=== PATIENT | male | born 1990 | race Caucasian/White ===

== ENCOUNTER 2021-03-20 16:49 | Emergency (ER) | payer OTHER, SELFPAY ==
[2021-03-20 17:05] VITALS: BP 162/77; PULSE 70; RESP 16; TEMP 37.2; O2SAT 99; BMI 24.3
--- NOTE | 2021-03-20 20:08 | ED.GENADULT ---
HPI - General Adult General Chief complaint: Dental/Oral Stated complaint: dental pain Time Seen by Provider: 03/20/21 20:08 Related Data Previous Rx's Medication Instructions Recorded amoxicillin-pot clavulanate 1 tab PO BID 10 Days #20 tab 03/20/21 [Augmentin] ibuprofen 600 mg PO Q8H PRN #20 tab 03/20/21 oxycodone 7 mg PO Q4-6H PRN #5 tab 03/20/21 amoxicillin 500 mg PO BID 7 Days #14 cap 03/21/21 Allergies Allergy/AdvReac Type Severity Reaction Status Date / Time No Known Allergies Allergy Unverified 06/18/20 18:47 Review of Systems Review of Systems: Constitutional : No Weight loss, No Fever, No Chills, No Night Sweats, No Fatigue, No Malaise ENT/Mouth : No Hearing loss, No Ear Pain, No Nasal Congestion, No Sinus Pain, No Hoarseness, No sore throat, No Rhinorrhea, No Swallowing Difficulty, dental caries Eyes: No Eye Pain, No Swelling, No Redness, No Foreign Body, No Discharge, No Vision Changes Cardiovascular : No Chest Pain, No SOB, No Dyspnea on Exertion, No Orthopnea, No Edema, No Palpitations Respiratory : No Cough, No Sputum, No Wheezing, No Smoke Exposure, No Dyspnea Gastrointestinal : No Nausea, No Vomiting, No Diarrhea, No Constipation, No abdominal Pain, No Hematochezia, No Melena Genitourinary : no irregular bleeding, No Dysuria, No Urinary Frequency, No Hematuria, No Urinary Incontinence, No Urgency, No Flank Pain, No Urinary Flow Changes, No Hesitancy Musculoskeletal : No joint pain, No Myalgias, No Joint Swelling Skin : No Skin Lesions, No rash Neuro : No Weakness, No Numbness, No Paresthesias, No Loss of Consciousness, No Dizziness, No Headache Psych : No Anxiety/Panic, No Depression, No SI/HI/AH/VH, No Social Issues, Heme/Lymph: No Bruising, No Bleeding,No Lymphadenopathy Endocrine : No Polyuria, No Polydipsia, No Temperature Intolerance Yes all other systems are reviewed and are negative [facility] Social History Social History Advance Directives: No Advance Directives Information Provided: No Physical Exam Vital Signs: Vital Signs: Last Vital Signs Temp 98.9 F 03/20/21 17:05 Pulse 70 03/20/21 17:05 Resp 16 06/19/21 17:05 BP 162/77 H 03/20/21 17:05 Pulse Ox 99 03/20/21 17:05 Body Mass Index 24.3 Const: General: healthy appearing, no acute distress and well developed Nutritional Appearance: well nourished Orientation/consciousness: patient oriented x3 HENMT: Head: Yes normal to inspection and Yes normocephalic Ears: hearing grossly normal bilaterally and TM's normal bilaterally General nose exam: Normal external nose present and Normal nares present Face and sinus: Yes normal facial exam and Yes sinuses nontender Teeth and gingiva: abnormal tooth and associated gingiva (Negative for abscess) Throat: Yes tonsils normal and Yes uvula midline Neck: Neck: Yes normal visual inspection, Yes full ROM and Yes trachea midline Thyroid: Thyroid normal Resp: Auscultation: clear to auscultation bilaterally Cardio: Rate: regular rate Rhythm: regular rhythm GI: Inspection: Yes normal to inspection and No distended Palpation (GI): No hepatosplenomegaly present Auscultation: normal bowel sounds Skin: General skin exam: elasticity normal, turgor normal and dry skin Neuro: General: patient oriented x3 Course Course Course Narrative: 30-year-old male here today for complaining of mouth pain. Patient has had very poor dentition and multiple dental caries. Patient has an appointment with oral surgeon this Monday. Has been taking ibuprofen and Tylenol without any relief. There is no abscess. I will order him antibiotic and morphine for pain last time he had ibuprofen was 1 hour ago and Tylenol 3 hours ago. Patient denies any other symptoms. Discharge Plan Discharge Clinical Impression: Dental caries, Toothache Patient Disposition: Home, Self-Care Instructions: Toothache (ED) Additional Instructions: You were seen here today for complaining of gum and teeth pain. Please follow-up with your dentist on Monday. You will be given antibiotic and pain medication. Do not drive or operate any heavy machinery while taking the pain medication. You may return to emergency department if you experience any additional considering symptoms. Prescriptions: New oxycodone 5 mg tablet 7 mg PO Q4-6H PRN (Reason: pain) Qty: 5 RF: 0 amoxicillin-pot clavulanate [Augmentin] 875-125 mg tablet 1 tab PO BID 10 Days Qty: 20 RF: 0 ibuprofen 600 mg tablet 600 mg PO Q8H PRN (Reason: pain) Qty: 20 RF: 0 amoxicillin 500 mg capsule 500 mg PO BID 7 Days Qty: 14 RF: 0 Interventions: ED Discharge Assessment Last Done: 03/20/21 22:04 Discharge Date/Time: 03/20/21 22:04
[2021-03-20] MEDS: Morphine Sulfate 4 MG/ML CARTRIDGE IM (20:40)
[2021-03-20] MEDS: Amoxicillin/Potassium Clav 875 MG TABLET PO (20:40)
== END 2021-03-20 22:04 | disposition home or self-care (01) ==
PROVIDERS: Emergency Provider Internal Medicine; PCP Internal Medicine
DX: K02.9 Dental caries, unspecified (principal)
CPT/HCPCS: 96372; 99284; J2270

== ENCOUNTER 2021-06-03 13:07 | Inpatient (IN) | payer OTHER, SELFPAY ==
[2021-06-03 16:09] VITALS: BP 132/75; PULSE 92; RESP 16; TEMP 37.2; O2SAT 99
[2021-06-03 16:11] VITALS: BMI 25.1
[2021-06-03] MEDS: Nicotine Polacrilex 2 MG GUM 4 MG BUCCAL (16:22)
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
[2021-06-03 21:29] VITALS: PULSE 71; RESP 71; TEMP 37.1; O2SAT 95
[2021-06-04] MEDS: Nicotine Polacrilex 2 MG GUM 4 MG BUCCAL ×3 (07:55→20:15)
[2021-06-04] MEDS: FLUoxetine HCl Oral Solution 20 MG/5 ML SOLUTION PO (08:01)
[2021-06-04 08:52] VITALS: BP 128/69; PULSE 71; TEMP 36.9; O2SAT 96
--- NOTE | 2021-06-04 11:21 | HO.PM.IMCN ---
History of Present Illness Data of Consult Service Date: 06/04/21 Primary Care Provider: Unknown Physician HPI 30-year-old male with anxiety and depression who was evaluated at [facility] on Jun 01 with suicidal ideation, at some point reported taking Xanax but later recanted this. He is now admitted here at [facility] for treatment of depression/suicidality after break-up with his girlfriend. He admits to me that he did take xanax not get high but hide how he was feeling . He feels better, he has no medical issues other than chronic dental issues due to poor dentition ? Review of Systems Review of Systems: Gen: no fever Resp: no sob, no cough CV: no chest, no CURRY, no leg edema GI: No n/v, no abd pain Neuro: No confusion Psych: denies SI/HI [facility] Medical History Cocaine use disorder, mild, in early remission Generalized anxiety disorder MDD (major depressive disorder), recurrent episode, moderate Social History Household Members: None Housing: Homeless Do you presently have visiting nurse or other home services: No Patient Tobacco Use Status: Current everyday Tobacco user Tobacco use type: Cigarette Cigarette Packs Per Day: 1 Cigarettes Per Day: 20.0 Years Smoked: 17 Smoked in Last 30 Days: Yes e-Cigarette/Vaping Use: Never Used Patient Interested in Nicotine Replacement: Yes Second Hand Smoke Exposure: No Use of substances other than those prescribed or required for medical reasons: Yes Substance Use Type: Crack/Cocaine, Former Substance User, Marijuana and Caffiene Substance Use Frequency: Chronic Longstanding Last Used Substance: Days (ago) Last Used Substance Other:: Xanax overdose 06/01 Currently Displaying Signs/Symptoms of Drug Intoxication Withdrawal: No Other Past Substance Use Problem:: Long standing use of Cocaine -- I was sober since January 2019 before this Any prior treatment program specific to substance use: Yes (Has been [facility]) Have you been hit, kicked, punched, or otherwise hurt by someone within the past year? If so, by whom?: No Do you feel safe in your current relationship?: No Current Relationship Is there a partner from a previous relationship who is making you feel unsafe now?: No Are you made to feel afraid or neglected: No Advance Directives: No Advance Directives Information Provided: No Advance Directives on File: No Do you have thoughts of harming others: None Do you have a plan to hurt others: No Plan Recently lost weight without trying: No Eating poorly because of decreased appetite: No Nutrition Risks: No Nutritional Risk Poor oral hygiene: Yes ( My teeth are bad and I think I have infections in my teeth. ) Meds Allergies Allergy/AdvReac Type Severity Reaction Status Date / Time No Known Allergies Allergy Unverified 06/18/20 18:47 Active Medications: Current Medications Generic Name Dose Route Start Last Admin Trade Name Freq PRN Reason Stop Dose Admin Acetaminophen 650 mg 06/03/21 13:29 Acetaminophen 325 Mg Tablet PO Q6H PRN Headache/Pain Mild Scale (1-3) Al Hydroxide/Mg Hydroxide 30 ml 06/03/21 13:29 Magnesium Hydrox/Alum Hydrox 30 Ml Oral.Susp PO Q6H PRN Heartburn/Nausea Fluoxetine HCl 20 mg 06/04/21 09:00 06/04/21 08:01 Fluoxetine Hcl Oral Solution 20 Mg/5 Ml Solution PO 20 mg DAILY JAMES Administration Hydroxyzine HCl 25 mg 06/03/21 13:29 Hydroxyzine Hcl 25 Mg Tablet PO BEDTIME PRN Anxiety Magnesium Hydroxide 30 ml 06/03/21 13:29 Milk Of Magnesia 30 Ml Oral.Susp PO DAILY PRN Constipation Nicotine Polacrilex 4 mg 06/03/21 13:29 06/04/21 07:55 Nicotine Polacrilex 2 Mg Gum BUCCAL 4 mg Q2H PRN Administration Nicotine Cravings Trazodone HCl 50 mg 06/03/21 13:29 Trazodone Hcl 50 Mg Tablet PO BEDTIME PRN Insomnia Physical Exam Vital Signs and Narrative: Vital Signs: Last Vital Signs Temp 98.4 F 06/04/21 08:52 Pulse 71 06/04/21 08:52 Resp 71 H 06/03/21 21:29 BP 128/69 06/04/21 08:52 Pulse Ox 96 06/04/21 08:52 Body Mass Index 25.1 General: AO X 3, no acute distress HEENT--very poor dentiotion, no obvious visible abscess Resp: CTA bilateral CVS: S1,S2,RRR GI: +BS, NT, no distention Skin: No rash Neuro: motor grossly intact, CN2 to 12 intact Psych: appropriate affect , denies SI Assessment and Plan (1) Generalized anxiety disorder: Status: Acute (2) Cocaine use disorder, mild, in early remission: Status: Acute 30/m with depression with suicidality, substance use desorder presently been managed for depression, his mood is better. Plan: Continue presently pharmacoligical and behavioral and social support, encouraged him to stop substance use and to seek dental care for dental issues. Thanks
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
[2021-06-04 18:00] VITALS: BP 128/66; PULSE 78; RESP 18; TEMP 36.2; O2SAT 97
[2021-06-05 06:00] VITALS: BP 126/59; PULSE 63; RESP 20; TEMP 36.7; O2SAT 98
[2021-06-05] MEDS: FLUoxetine HCl Oral Solution 20 MG/5 ML SOLUTION PO (09:10)
[2021-06-05] MEDS: Nicotine Polacrilex 2 MG GUM 4 MG BUCCAL ×4 (09:46→20:29)
--- NOTE | 2021-06-05 13:43 | HO.PSYCHPN ---
Subjective Subjective Date of Service: 06/06/21 Reason For Visit: depressive disorder Interim History: Pt reports decreased symptoms of depression. He denies SI/HI. He reports some difficulty sleeping- wants to try melatonin for it. He has been visible in the unit. He attends assigned groups. No behavioral concerns. Medication Compliance: Yes Side effects from medications: No Review of Systems Review of Systems Gen: no fever Resp: no sob, no cough CV: no chest, no CURRY, no leg edema GI: No n/v, no abd pain Neuro: No confusion Psych: denies SI/HI Mental Status Exam Mental Status Exam Narrative: Appearance: casually groomed, fair hygiene in NAD Behavior:cooperative psychomotor: no agitation or retardation noted Speech:clear, normal rate/rhythm, volume, spontaneous Thought process:linear Thought content:no signs of psychosis, future oriented Mood: better Affect: congruent, brighter, non labile SI:none HI: none VH/AH: none Delusions:none Insight/judgment:fair x 2. Memory/cog: alert, oriented x 3. grossly intact to conversational testing. Diagnostics Vital Signs (24Hr): Vital Signs - 24 hr 06/05/21 20:03 06/06/21 06:00 Temperature 98.0 F 98.2 F Pulse Rate 76 58 Respiratory Rate 18 Blood Pressure 146/74 H 132/71 Pulse Oximetry 97 97 Body Mass Index 25.1 Medications Medications Current Medications Generic Name Dose Route Start Last Admin Trade Name Freq PRN Reason Stop Dose Admin Acetaminophen 650 mg 06/03/21 13:29 Acetaminophen 325 Mg Tablet PO Q6H PRN Headache/Pain Mild Scale (1-3) Al Hydroxide/Mg Hydroxide 30 ml 06/03/21 13:29 Magnesium Hydrox/Alum Hydrox 30 Ml Oral.Susp PO Q6H PRN Heartburn/Nausea Fluoxetine HCl 20 mg 06/06/21 09:00 06/06/21 08:22 Fluoxetine Hcl 20 Mg Capsule PO 20 mg DAILY JAMES Administration Hydroxyzine HCl 25 mg 06/03/21 13:29 Hydroxyzine Hcl 25 Mg Tablet PO BEDTIME PRN Anxiety Magnesium Hydroxide 30 ml 06/03/21 13:29 Milk Of Magnesia 30 Ml Oral.Susp PO DAILY PRN Constipation Melatonin 6 mg 06/05/21 21:00 06/05/21 20:29 Melatonin 3 Mg Tablet PO 6 mg BEDTIME JAMES Administration Nicotine Polacrilex 4 mg 06/03/21 13:29 06/06/21 09:56 Nicotine Polacrilex 2 Mg Gum BUCCAL 4 mg Q2H PRN Administration Nicotine Cravings Trazodone HCl 50 mg 06/03/21 13:29 Trazodone Hcl 50 Mg Tablet PO BEDTIME PRN Insomnia Allergies Allergies Allergy/AdvReac Type Severity Reaction Status Date / Time No Known Allergies Allergy Unverified 06/18/20 18:47 Assessment & Plan Assessment & Plan (1) Generalized anxiety disorder: Status: Acute Code(s): F41.1 - Generalized anxiety disorder (2) Cocaine use disorder, mild, in early remission: Status: Acute Code(s): F14.11 - Cocaine abuse, in remission (3) MDD (major depressive disorder), recurrent episode, moderate: Status: Acute Code(s): F33.1 - Major depressive disorder, recurrent, moderate Assessment and Plan: 30/m with depression with suicidality, substance use desorder presently been managed for depression, his mood is better. Plan: Continue presently pharmacoligical and behavioral and social support, encouraged him to stop substance use and to seek dental care for dental issues. PLAN 1. continue prozac 2. aftercare planning. Greater than 50% of the session was spent on counseling and/or coordination of care Reason for contiued inpatient stay Substantial Risk for: stable for discharge
[2021-06-05 20:03] VITALS: BP 146/74; PULSE 76; TEMP 36.7; O2SAT 97
[2021-06-05] MEDS: Melatonin 3 MG TABLET 6 MG PO (20:29)
[2021-06-06 06:00] VITALS: BP 132/71; PULSE 58; RESP 18; TEMP 36.8; O2SAT 97
[2021-06-06] MEDS: FLUoxetine HCl 20 MG CAPSULE PO (08:22)
[2021-06-06] MEDS: Nicotine Polacrilex 2 MG GUM 4 MG BUCCAL (09:56)
--- NOTE | 2021-06-06 13:50 | PM.PSYDC ---
DS: Providers Provider Date of Service: 06/06/21 Date of admission: 06/03/21 13:07 Primary care physician: Unknown Physician Consults: 06/03/21 18:49 Consult to Hospitalist Routine Consulting Provider: Hospitalist Reason For Exam: Admitted to [facility] from [facility]. Consult per policy. DS: Diagnosis Discharge Diagnosis (1) Generalized anxiety disorder: Status: Acute (2) Cocaine use disorder, mild, in early remission: Status: Acute (3) MDD (major depressive disorder), recurrent episode, moderate: Status: Acute DS: Medications Discharge Medications Home Medications: Previous Rx's Medication Instructions Recorded fluoxetine 20 mg capsule 20 mg PO DAILY #30 cap 06/06/21 melatonin 3 mg tablet 6 mg PO BEDTIME #60 tab 06/06/21 nicotine (polacrilex) 2 mg gum 4 mg BUCCAL Q2H PRN #30 ea 06/06/21 Mental Status Exam Mental Status Exam Narrative: Appearance: casually groomed, fair hygiene in NAD Behavior:cooperative psychomotor: no agitation or retardation noted Speech:clear, normal rate/rhythm, volume, spontaneous Thought process:linear Thought content:no signs of psychosis, future oriented Mood: better Affect: congruent, brighter, non labile SI:none HI: none VH/AH: none Delusions:none Insight/judgment:fair x 2. Memory/cog: alert, oriented x 3. grossly intact to conversational testing. DS: Summary Hospital Course Hospital Course: Ty is a 30 y.o. Who carries a dx of unspecified depressive disorder, cocaine use disorder. He presented to [facility] ED on 06/01/21 and was seen by [facility] crisis due to depression, overdosed on - xanax, and making suicidal statements. Precipitating factors include that he found out his gf of a year and a half was cheating on him. He was initially discharged in the morning and called a friend for support, that person called the police and reported Ty was suicidal with plans to overdose. He was brought back to [facility] via section 12a and re-assessed by crisis on 06/02/21. HOSPITAL COURSE Pt was admitted on CV. He signed 3 day notice. He was placed on 15 minutes checks for safety. On the unit, pt adamantly denied suicidal or homicidal ideation. Pt reported it was an impulsive decision with intent to scare GF as he had just found out that GF of one year was seeing someone else. Pt does report hx of depression but not uin current OP psych tx. He denies recent use of cocaine, although utox was positive for cocaine After discussing risks, benefits and alternative treatment options, pt agreed to be started on prozac, which he was on in the past with good effect. Pt reported some difficulty sleeping- tried melatonin with good effect. His affect gradually brighten. He continued to denied suicidal or homicidal ideation. There were no incidences of disruptive behaviors nor use of restraints. Collateral information gathered from friend who denied safety concerns at time of discharge and agreed that pt was in much stable condition. Pt agrees to follow up with OP providers although did not want to delay discharge to wait for this. Status at Discharge Cognitive/behavioral status at discharge: Pt with brighter affect, non labile. No SI/HI. No signs of aggression towards self or others. Pt is hopeful, future oriented. Functional status at discharge: independent ambulation Overall status at discharge: patient is progressing back to baseline Time Spent with Patient Time attestation: Total time spent providing and/or coordinating discharge services: Time spent: Greater than 30 minutes Discharge Plan Discharge Patient Disposition: Home, Self-Care Discharge Diagnosis: MDD, MARCOS, cocaine use disorder Referrals: Physician,Unknown [Primary Care Provider] - 1 Week Discharge Medications: New nicotine (polacrilex) 2 mg Gum 4 mg buccal Q2H PRN (Reason: Nicotine Cravings) Qty: 30 RF: 0 melatonin 3 mg Tablet 6 mg PO BEDTIME Qty: 60 RF: 0 fluoxetine 20 mg Capsule 20 mg PO DAILY Qty: 30 RF: 0 Discontinued oxycodone 5 mg tablet 7 mg PO Q4-6H PRN (Reason: pain) Qty: 5 RF: 0 amoxicillin-pot clavulanate [Augmentin] 875-125 mg tablet 1 tab PO BID 10 Days Qty: 20 RF: 0 ibuprofen 600 mg tablet 600 mg PO Q8H PRN (Reason: pain) Qty: 20 RF: 0 amoxicillin 500 mg capsule 500 mg PO BID 7 Days Qty: 14 RF: 0 Discharge Orders: Discharge Order (Routine); Ordered 06/06/21 Ordered By: Ena Ahn Diet: regular diet Activity on Discharge: As tolerated Stand Alone Forms: Patient Portal Discharge page Care Plan Goals: 1. Maintain mood 2. No SI/HI Health Concerns: 1. Follow up with PCP Plan of Treatment: 1. Take medications as prescribed. 2. Go to nearest ED or call 911 in event of emergency Assessment: Pt with brighter affect. NO SI/HI. Stable for discharge
== END 2021-06-06 14:08 | disposition home or self-care (01) | DRG 751 ==
PROVIDERS: Admitting Provider Psychiatry & Neurology Psychiatry; Visit Provider Social Worker
DX: F33.1 Major depressive disorder, recurrent, moderate (principal); R45.851 Suicidal ideations; F14.11 Cocaine abuse, in remission; F41.1 Generalized anxiety disorder; F17.210 Nicotine dependence, cigarettes, uncomplicated; Z71.6 Tobacco abuse counseling; Z79.899 Other long term (current) drug therapy